=== PATIENT | female | born 1995 | race African-American/Black ===

== ENCOUNTER 2024-10-16 09:43 | Emergency (ER) | payer OTHER ==
[~2024-10-16] VITALS: Ht 167.6 cm; Wt 136.5 kg
[2024-10-16 09:50] VITALS: PULSE 74; RESP 20; TEMP 98
[2024-10-16] MEDS ORDERED: IOPAMIDOL 370 MG/ML 100 ML INFUS..BTL INJ ONE (11:17)
[2024-10-16 12:40] VITALS: BP 137/72; PULSE 66; RESP 20; TEMP 97.6; O2SAT 99
== END 2024-10-16 12:45 | disposition home or self-care (01) ==
LOC: FSED 09:50
DX: R10.13 Epigastric pain (principal); N83.201 Unspecified ovarian cyst, right side; R11.0 Nausea; R42 Dizziness and giddiness; J45.909 Unspecified asthma, uncomplicated; F32.A Depression, unspecified
CPT/HCPCS: 71046; 74177; 80048; 80076; 81003; 81025; 84484; 85025; 85379; 93005; 99283; Q9967